=== PATIENT | female | born 1990 ===

== ENCOUNTER 2019-06-21 22:35 | Inpatient (IN) ==
[~2019-06-21 22:35] MED LIST: *HR* Nalbuphine 10 MG/ML AMPUL IVP PRN; Famotidine 20 MG/2 ML VIAL IVP PRN; Metoclopramide 10 MG/2 ML VIAL IVP PRN; Naloxone 0.4 MG/ML INJ IVP PRN; Ondansetron 4 MG/2 ML VIAL IVP PRN; Penicillin G Potassium 5,000,000 UNIT in 0.9 % Sodium Chloride Mini Bag 100 ML IVPB ONE
--- NOTE | 2019-06-21 22:39 | OB/GYN History & Physical ---
Date of Encounter: 06/21/19 Time of Encounter: 22:36 Assessment and Plan (1) 38 weeks gestation of Current visit: Yes Status: Acute Admit for labor GBS +; start PCN prophylaxis Consider pitocin for augmentation Patient may have nubain/epidural upon request Anticipate vaginal delivery POC per consult with Dr Mitchell History of Present Illness Chief complaint: Grossly ruptured HPI: Ms. Hernandez is a 29 year old at 38 weeks and 6 days that presents to triage with c/o leaking of fluid that began at 1830 this evening. She states positive movement. She denies headaches, vision changes, and epigastric pain. She also c/o mild contractions. She has had a benign course and is seen for her care by Dr Esparza. Labs: GBS positive Blood type A- HIV NR Hep B Neg RPR NR Rubella Immune Past Med Surg Social Fam HX - Past Medical History Medical history: no medical history Psychiatric history: no psych history - Past Surgical History Surgical History: no surgical history - Social History Smoking Status: Never smoker Smokeless Tobacco Status: No Alcohol use: none Drug use: none - Family History Father Adopted: No Family Member Ethnicity: Non- Living Status: Still Living Hx Family Cardiac Disorders: No Hx Family Respiratory Disorders: No Hx Family Cancer: No Hx Family GI Disorders: No Hx Family Genitourinary Disorders: No Hx Family Endocrine Disorder: Yes Hx Family Musculoskeletal Disorders: No Hx Family Neuromuscular Disorders: No Hx Family Neurologic Disorders: No Hx Family HEENT Disorders: No Hx Family Autoimmune Disorders: No Hx Family Reproductive Disorders: No Hx Family Psychosocial Disorders: No Hx Family Medical Disorders: No Obstetrical History - Pregnancies : 1 Para: 0 Term: 0 : 0 Ab's: 0 Livin Review of System OB All systems PM: reviewed and no additional remarkable complaints except as stated Exam - Constitutional Constitutional: well developed, well nourished, no acute distress, average body habitus - HEENT HEENT: Normocephaly, Mucus Membranes Moist - Neck Neck exam: full ROM - Lungs Respiratory exam: CTAB - Cardiovascular Cardiovascular exam: RRR, +S1, +S2 - Abdomen Abdomen: Present: bowel sounds normal, gravid, non tender - Extremities Extremities exam: normal capillary refill, normal inspection, radial pulses palpable and symmetrical Deep Tendon Reflex Grade: 1+ Diminished - Vagina Vagina: Present: normal moisture - Cervix Dilation: 5 (grossly ruptured nitrazine pos) Effacement: 80 Station: 0 - Anus/Rectum Anus/Rectum: Present: normal perianal skin Results All other labs normal.
[2019-06-21] MEDS ORDERED: Ringers Solution, Lactated 1,000 ML IVC SCH (22:45)
[2019-06-21] MEDS ORDERED: Ringers Solution, Lactated 1,000 ML ONE (22:45)
[2019-06-21 23:34] LABS: Basophils % 0.1 %; Eosinophils # 0.1 K/mcL (0.0-0.6); Eosinophils % 0.8 %; Hematocrit 35.2 % (35.3-44.9); Hemoglobin 11.5 g/dL (11.5-15.4); Immature Granulocytes % 0.5 % (0-4); Lymphocytes # 1.8 K/mcL (0.6-4.6); Lymphocytes % 22.8 %; Mean Corpuscular HGB Conc 32.7 g/dL (31.6-35.5); Mean Corpuscular Hemoglobin 27.5 pg (28.0-33.3); Mean Corpuscular Volume 84.2 fL (83.0-100.0); Mean Platelet Volume 10.6 fL (9.4-12.4); Monocytes # 0.9 K/mcL (0.0-1.3); Monocytes % 11.5 %; Platelet Count 158 K/mcL (140-400); Red Blood Count 4.18 M/mcL (3.82-4.97); Red Cell Distribution Width 13.8 % (11.5-14.5); Segmented Neutrophils % 64.3 %; White Blood Count 7.8 K/mcL (4.3-11.1)
[2019-06-21 23:43] LABS: Amphetamine Screen,Urine Negative ng/mL (Cutoff=1000); Barbiturate Screen,Urine Negative ng/mL (Cutoff=200); Benzodiazepines Screen,Urine Negative ng/mL (Cutoff=200); Cannabinoid Screen,Urine Negative ng/mL (Cutoff = 50); Cocaine Screen,Urine Negative ng/mL (Cutoff= 300); Opiate Screen,Urine Negative ng/mL (Cutoff=300); Phencyclidine Screen,Urine Negative ng/mL (Cutoff=25)
[2019-06-22] MEDS ORDERED: Epidural Premix (fent/bupiv) 110 ML EP ONE (01:01)
--- NOTE | 2019-06-22 01:54 | Anesthesia Evaluation PreOp ---
Date of Encounter: 06/22/19 Time of Encounter: 01:12 - Past History Planned Operation: Del, G1 SROM 1830, spont Cardiac History: Denies any Significant Hx Pulmonary History: Denies Any Significant HX HAZARDOUS SUBSTANCES SCIENTIST History: Denies Any Significant HX Other Medical History: Denies Any Significant HX Anesthesia History: No Prior Anesthetic Complications, Past Anesthesia (no known family hx.) Alcohol Use: none Drug use: none Medications and Allergies Allergy/AdvReac Type Severity Reaction Status Date / Time No Known Allergies Allergy Verified 06/21/19 23:30 Anesthesia Results - Labs 06/21/19 23:16 Anesthesia Exam - HEENT Pupil (Motor): Pupils equal Mallampati: II Teeth: Normal Oral Opening: Greater than 3 - HAZARDOUS SUBSTANCES SCIENTIST LOC: Oriented HAZARDOUS SUBSTANCES SCIENTIST Motor: Normal RUE, Normal LUE, Normal RLE, Normal LLE, Normal Face HAZARDOUS SUBSTANCES SCIENTIST Sensory: Normal: RUE, LUE, RLE, LLE, Face - Cardiac Rhythm: Regular Murmur: None - Pulmonary Breath Sounds: bilateral Clear Respiratory Effort: Symmetrical Anesthesia Assess/Plan ASA Score: 2 Level of consciousness: Cooperative, Oriented Anesthetic Plan: General, Spinal, Epidural Monitoring Plan: Standard Monitors Recovery Plan: PACU
--- NOTE | 2019-06-22 01:59 | Anesthesia Procedures ---
Date of Encounter: 06/22/19 Time of Encounter: 01:28 Procedures: Anesthesia - Epidural/Spinal Patient ID/Chart reviewed: Yes Patient examined: Yes OB Eval: : 1 OB Eval: Contractions: Non-stressed pattern Consent Obtained: Yes Supplemental Oxygen: None/Room Air Site Prep: Aseptic Technique, Sterile prep and drape, 0.5% Chlorhexidine/Alcohol Patient position: upright Local Anesthetic: Lidocaine 1% Amount of Local Anesthetic used: 2 Touhy Needle Gauge: 18 Touhy Needle Depth (cm): 8 Catheter Depth at Skin (cm): 12 Test Dose (1.5% Lido + Epi): Volume given (mls): 4 Test Dose Result: Negative Loading Dose: Other: 10ml from solution Loading Dose Administered: Thru Catheter Infusion Med: 0.125% Bupivacaine w/ 2 mcg/ml Fentanyl Infusion Rate (mls/hr): [address]: Tegaderm, Tape Interspace Used: L3-L4 Loss of Resistance (TANYA): Yes (saline) Blood: No CSF: Yes (25g purposeful, no inj) Paresthesia: No Procedure: vss though out procedure, several false TANYA at 2 levels with no CSF via 25g spinal, L2-3 TANYA at 8cm with (CSF to 25g spinal purposeful), some resistance noted when threading cath no pain reported.
[2019-06-22] MEDS ORDERED: Ondansetron 4 MG/2 ML VIAL ONE (02:22)
[2019-06-22] MEDS ORDERED: EPHEDrine 50 MG/ML VIAL ONE (02:23)
[2019-06-22] MEDS: Penicillin G Potassium 2,500,000 UNIT in 0.9 % Sodium Chloride 100 ML IVPB SCH ×2 (03:22→07:46)
[2019-06-22] MEDS: Epidural Premix (fent/bupiv) 110 ML EP SCH ×2 (03:23→07:56)
[2019-06-22] MEDS ORDERED: Oxytocin 20 units/ LR 1000 mL 20 UNIT/1,000 ML BAG IVC ONE (05:08)
[2019-06-22] MEDS ORDERED: Oxytocin 20 units/ LR 1000 mL 20 UNIT/1,000 ML BAG IVC SCH ×2 (10:15→12:31)
--- NOTE | 2019-06-22 10:48 | OB/GYN Procedure Note ---
Delivery - Delivery Date: 06/22/19 Provider: Lisandro Dupree Intrapartum events: none Delivery induction: none Delivery augmentation: pitocin Delivery monitor: external FHT, external uterine Anesthesia: epidural Quantitated Blood Loss: 200 - (s) Infant A Delivery Date: 06/22/19 Infant Delivery Time: 10:26 Presentation: vertex Position: OA Route of delivery: Gender: Female Viability: Viable Pounds: 7 Ounces: 0 Weight Gram: 3.18 kg at 1 minute: 8 at 5 mins: 9 Shoulder Dystocia: not encountered Specimens collected: cord blood Placenta: spontaneous Cord: 3 umbilical vessels - Repair Episiotomy: none Laceration Description: Perineal - 1st Degree - Complications Delivery complications: none Delivery comments: This patient progressed to complete and pushing and had a spontaneous vaginal delivery of a female infant over an intact perineum. Infant's head was in the perineum easily. The rest of the was then delivered without difficulty. Infant cried immediately upon delivery after 1 minute the cord was clamped cut and the was passed to nursing in attendance. Cord blood was obtained. Placenta was then delivered spontaneously and intact. There were no cervical, vaginal or periurethral lacerations noted. There was a first-degree perineal laceration repaired with 3-0 Vicryl suture. Patient delivered a female infant weight was 7 lbs. 0 oz., 3180 g. Apgars are 8 at 1 minute and 9 at 5 minutes. Estimated blood loss is 200 mL. - Disposition Mom disposition: stable in LDR disposition: stable in LDR
[2019-06-22] MEDS ORDERED: Ibuprofen 600 MG TABLET PO PRN (12:31)
[2019-06-22] MEDS ORDERED: Rho Immune Globulin 1,500 UNIT SYRINGE IM PRN (12:31)
[2019-06-22] MEDS ORDERED: Acetaminophen 325 MG TABLET PO PRN (12:31)
[2019-06-22] MEDS ORDERED: Measles/Mumps/Rubella Vacc 0.5 ML VIAL SQ PRN (12:31)
[2019-06-23 08:27] LABS: Basophils % 0.1 %; Eosinophils % 0.2 %; Hematocrit 32.9 % (35.3-44.9); Hemoglobin 10.6 g/dL (11.5-15.4); Immature Granulocytes % 0.5 % (0-4); Lymphocytes # 1.9 K/mcL (0.6-4.6); Lymphocytes % 15.3 %; Mean Corpuscular HGB Conc 32.2 g/dL (31.6-35.5); Mean Corpuscular Volume 86.8 fL (83.0-100.0); Mean Platelet Volume 10.5 fL (9.4-12.4); Monocytes # 0.9 K/mcL (0.0-1.3); Monocytes % 7.2 %; Neutrophils # 9.4 K/mcL (1.6-8.9); Platelet Count 139 K/mcL (140-400); Red Blood Count 3.79 M/mcL (3.82-4.97); Segmented Neutrophils % 76.7 %
[2019-06-23 08:29] LABS: White Blood Count 12.2 K/mcL (4.3-11.1)
[2019-06-23] MEDS ORDERED: Prenatal Vit/FA 1 EACH TABLET PO SCH (09:00)
[2019-06-23 09:05] VITALS: BP 100/62
--- NOTE | 2019-06-23 12:33 | Discharge Summary ---
Date of Encounter: 06/23/19 Time of Encounter: 12:30 - Discharge Diagnosis (1) Vaginal delivery Priority: Primary Status: Acute Comments: Patient meeting day one milestones. Pain well-controlled with prescribed medications. Voiding without difficulty, tolerating regular diet, bleeding light. No bowel movement yet. Anticipate discharge today (2) First degree perineal laceration during delivery Priority: Secondary Status: Acute Comments: Motrin, Dermoplast, ice pack as needed for discomfort (3) Breast feeding status of mother Priority: Secondary Status: Acute Comments: Dictation support as needed. Will provide breast pump prescription if needed. - Discharge Medications Prescriptions: New Breast Pump [BREAST PUMP] 1 each .ROUTE AD #1 each Docusate [Colace] 100 mg PO BID capsule Ibuprofen [Motrin] 600 mg PO Q6HR PRN #30 tablet PRN Reason: Cramping Acetaminophen [Tylenol] 650 mg PO Q6HR PRN tablet PRN Reason: Mild Pain Home Medications: Acetaminophen [Tylenol] 650 mg PO Q6HR PRN tablet 06/23/19 [Rx] Breast Pump [BREAST PUMP] 1 each .ROUTE AD #1 each 06/23/19 [Rx] Docusate [Colace] 100 mg PO BID capsule 06/23/19 [Rx] Ibuprofen [Motrin] 600 mg PO Q6HR PRN #30 tablet 06/23/19 [Rx] Allergies/Adverse Reactions: Allergy/AdvReac Type Severity Reaction Status Date / Time No Known Allergies Allergy Verified 06/21/19 23:30 Data Procedures and tests throughout hospitalization: Laboratory Tests 06/21/19 06/21/19 06/22/19 23:16 23:16 10:55 WBC 7.8 RBC 4.18 Hgb 11.5 Hct 35.2 L MCV 84.2 MCH 27.5 L MCHC 32.7 RDW 13.8 Plt Count 158 MPV 10.6 Immature Gran % 0.5 Seg Neutrophils % 64.3 Lymphocytes % 22.8 Monocytes % 11.5 Eosinophils % 0.8 Basophils % 0.1 Neutrophils # 5.0 Lymphocytes # 1.8 Monocytes # 0.9 Eosinophils # 0.1 Basophils # 0.0 Urine Opiates Screen Negative Ur Buprenorphine Scrn Negative Ur Barbiturates Screen Negative Ur Phencyclidine Scrn Negative Ur Amphetamines Screen Negative U Benzodiazepines Scrn Negative Urine Cocaine Screen Negative U Marijuana (THC) Screen Negative Ur Drug Screen Interp See Below Screen NEGATIVE Baby's Blood Type O RH POSITIVE Mother's Blood Type A RH NEGATIVE Rhogam Indicated YES Rhogam Req for Mother 1 06/23/19 04:00 WBC 12.2 H D RBC 3.79 L Hgb 10.6 L Hct 32.9 L MCV 86.8 MCH 28.0 MCHC 32.2 RDW 14.0 Plt Count 139 L MPV 10.5 Immature Gran % 0.5 Seg Neutrophils % 76.7 Lymphocytes % 15.3 Monocytes % 7.2 Eosinophils % 0.2 Basophils % 0.1 Neutrophils # 9.4 H Lymphocytes # 1.9 Monocytes # 0.9 Eosinophils # 0.0 Basophils # 0.0 Urine Opiates Screen Ur Buprenorphine Scrn Ur Barbiturates Screen Ur Phencyclidine Scrn Ur Amphetamines Screen U Benzodiazepines Scrn Urine Cocaine Screen U Marijuana (THC) Screen Ur Drug Screen Interp Screen Baby's Blood Type Mother's Blood Type Rhogam Indicated Rhogam Req for Mother Labs on day of discharge: Labs from last 24 hours 06/23/19 06/22/19 04:00 10:55 WBC 12.2 H D RBC 3.79 L Hgb 10.6 L Hct 32.9 L MCV 86.8 MCH 28.0 MCHC 32.2 RDW 14.0 Plt Count 139 L MPV 10.5 Immature Gran % 0.5 Seg Neutrophils % 76.7 Lymphocytes % 15.3 Monocytes % 7.2 Eosinophils % 0.2 Basophils % 0.1 Neutrophils # 9.4 H Lymphocytes # 1.9 Monocytes # 0.9 Eosinophils # 0.0 Basophils # 0.0 Screen NEGATIVE Baby's Blood Type O RH POSITIVE Mother's Blood Type A RH NEGATIVE Rhogam Indicated YES Rhogam Req for Mother 1 Date of admission: 06/21/19 22:35 Consults: 06/22/19 12:31 Consult to Cashier Payments Received [CONS] Routine Comment: Vaginal delivery, consult needed Discharging clinician: Nichole Lr Anticipated date of discharge: 06/23/19 - Patient Status Disposition: Home, Self-Care Condition: Good Functional capacity at discharge: independent ambulation Overall status at discharge: patient is progressing back to baseline - Discharge Instructions - Diet and Activity Activity: resume usual activities as tolerated Diet: regular diet Hospital Course Reason for admission: active labor, rupture of membranes Delivery: Episiotomy: none Laceration: 1st degree Other procedures: none complications: none Discharge diagnosis: IUP at term delivered [place] baby: female Hospital course: Delivery Date: 06/22/19 Provider: Lisandro Dupree Intrapartum events: none Delivery induction: none Delivery augmentation: pitocin Delivery monitor: external FHT, external uterine Anesthesia: epidural Quantitated Blood Loss: 200 - Infant (s) Infant A Infant Delivery Date: 06/22/19 Infant Delivery Time: 10:26 Presentation: vertex Position: OA Route of delivery: Gender: Female Viability: Viable Pounds: 7 Ounces: 0 Weight Gram: 3.18 kg at 1 minute: 8 at 5 mins: 9 Shoulder Dystocia: not encountered Specimens collected: cord blood Placenta: spontaneous Cord: 3 umbilical vessels - Repair Episiotomy: none Laceration Description: Perineal - 1st Degree - Complications Delivery complications: none Delivery comments: This patient progressed to complete and pushing and had a spontaneous vaginal delivery of a female over an intact perineum. Infant's head was in the perineum easily. The rest of the was then delivered without difficulty. Infant cried immediately upon delivery after 1 minute the cord was clamped cut and the infant was passed to nursing in attendance. Cord blood was obtained. Placenta was then delivered spontaneously and intact. There were no cervical, vaginal or periurethral lacerations noted. There was a first-degree perineal laceration repaired with 3-0 Vicryl suture. Patient delivered a female infant weight was 7 lbs. 0 oz., 3180 g. Apgars are 8 at 1 minute and 9 at 5 minutes. Estimated blood loss is 200 mL. - Disposition Mom disposition: stable in LDR disposition: stable in LDR Time Attestation: Total time spent providing and/or coordinating discharge services: Time Spent: Less than 30 minutes Exam - Constitutional Vitals: Temp Pulse Resp BP Pulse Ox 98.4 F 56 16 100/62 98 06/23/19 07:31 06/23/19 07:31 06/23/19 07:31 06/23/19 07:31 06/23/19 07:31 General appearance IM: A&O X 3, pleasant, no acute distress, answers questions appropriately - Respiratory Respiratory exam: Present: CTAB. Absent: respiratory distress - Cardiovascular Cardiovascular exam IM: Present: RRR, +S1, +S2. Absent: irregular rhythm - GI/Abdominal GI/Abdominal exam IM: normal bowel sounds - Rectal Rectal exam: deferred - Uterine Tone: Firm Uterus Position: At Umbilicus, Midline - Extremities Exam Extremities exam IM: Present: full ROM, normal capillary refill, normal inspection. Absent: calf tenderness - Neurological Exam Neurological exam: alert, normal gait, oriented X3
== END 2019-06-23 15:09 | disposition home or self-care (01) | DRG 807 ==
LOC: 1NENULAB → 1NENUOBS 06-22 12:31
PROVIDERS: ADMIT Advanced Practice Midwife; ATTEND Advanced Practice Midwife